=== PATIENT | male | born 1990 | race Caucasian/White ===

== ENCOUNTER 2017-03-28 07:32 | Inpatient (IN) | payer SELFPAY ==
[2017-03-28 09:03] LABS: Hemoglobin 16.2 gm/dl (11.8-15.2); Mean Corpuscular HGB Conc 34 % (32-34); Mean Corpuscular Hemoglobin 29 pg (28-32); Mean Corpuscular Volume 84 fl (84-94); Platelet Count 214 K/mm3 (140-440); Red Cell Distribution Width 13.4 % (13.2-15.2)
[2017-03-28 09:10] LABS: Alanine Aminotransferase 44 units/L (7-56); Albumin 4.3 g/dL (3.9-5); Albumin/Globulin Ratio 1.1 %; Alkaline Phosphatase 63 units/L (35-129); Anion Gap 18 mmol/L; Blood Urea Nitrogen 16 mg/dL (9-20); Calcium 9.2 mg/dL (8.4-10.2); Carbon Dioxide 25 mmol/L (22-30); Chloride 99.5 mmol/L (98-107); Glucose 104 mg/dL (75-100); Lipase 38 units/L (13-60); Potassium 3.6 mmol/L (3.6-5.0); Sodium 139 mmol/L (137-145); Total Protein 8.1 g/dL (6.3-8.2)
[2017-03-28 09:46] LABS: Bilirubin,Urine NEG (Negative); Blood,Urine MOD (Negative); Ketones,Urine NEG (Negative); Leukocyte Esterase,Urine NEG (Negative); Mucus,Urine FEW /HPF; Nitrite,Urine NEG (Negative)
[2017-03-28 10:31] LABS: Basophils % (Manual) 0 % (0.0-1.8); Blastocytes % (Manual) 0 %; Eosinophils % (Manual) 0 % (0.0-4.3)
[2017-03-28 10:32] LABS: Diff Status Complete; RBC Morphology Normal
[2017-03-28] MEDS ORDERED: NACL 0.9% 1000 ML 1,000 ML IV ONE (12:50)
--- NOTE | 2017-03-28 12:52 | Emergency Department Report ---
HPI - General Chief Complaint: Abdominal Pain Time Seen by Provider: 03/28/17 12:47 - HPI HPI: This is a 26-year-old male presents to the emergency department with a complaint of right lower quadrant pain since yesterday afternoon. He did not check his temperature but has felt febrile over last night and this morning. He 's been having some nausea and vomiting. He denies any problems with bowel or bladder. He does not have any past medical history. He did not take anything for his symptoms prior to presentation. No recent travel or sick contacts at home. The patient solely speaks Indian but has a friend bedside who is translating. ED Past Medical Hx - Past Medical History Previous Medical History?: No - Surgical History Past Surgical History?: No - Social History Smoking Status: Never Smoker Substance Use Type: None ED Review of Systems ROS: Stated complaint: ABD PAIN LEFT SIDE Other details as noted in HPI Comment: All other systems reviewed and negative Constitutional: denies: chills, fever Eyes: denies: eye pain, eye discharge, vision change ENT: denies: ear pain, throat pain Respiratory: denies: cough, shortness of breath, wheezing Cardiovascular: denies: chest pain, palpitations Gastrointestinal: abdominal pain, nausea, vomiting Genitourinary: denies: urgency, dysuria Musculoskeletal: denies: back pain, joint swelling, arthralgia Skin: denies: rash, lesions Neurological: denies: headache, weakness, paresthesias Physical Exam - Physical Exam Vital Signs: Vital Signs 03/28/17 03/28/17 08:30 12:44 Temperature 98.7 F Pulse Rate 111 H 91 H Respiratory 16 24 Rate Blood Pressure 136/85 O2 Sat by Pulse 96 98 Oximetry Physical Exam: GENERAL: The patient is well-developed well-nourished. HENT: Normocephalic. Atraumatic. Patient has moist mucous membranes. EYES: Extraocular motions are intact. Pupils equal reactive to light bilaterally. NECK: Supple. Trachea is midline. CHEST/LUNGS: Clear to auscultation. There is no respiratory distress noted. HEART/CARDIOVASCULAR: Regular. There is no tachycardia. There is no gallop rub or murmur. ABDOMEN: Abdomen is soft. There is right lower quadrant tenderness to palpation. There is some mild guarding. Normal bowel sounds. There is no abdominal distention. SKIN: Skin is warm and dry. NEURO: The patient is awake, alert, and oriented. The patient is cooperative. The patient has no focal neurologic deficits. The patient has normal speech. MUSCULOSKELETAL: There is no tenderness or deformity. There is no limitation range of motion. There is no evidence of acute injury. ED Course Vital Signs 03/28/17 03/28/17 08:30 12:44 Temperature 98.7 F Pulse Rate 111 H 91 H Respiratory 16 24 Rate Blood Pressure 136/85 O2 Sat by Pulse 96 98 Oximetry ED Medical Decision Making - Lab Data Result diagrams: 03/28/17 08:36 03/28/17 08:36 - Radiology Data Radiology results: report reviewed CT scan of abdomen and pelvis with IV contrast: History: Right lower quadrant pain, concern for appendicitis. Findings: Normal lung bases. No pleural or pericardial effusion. Liver measures 19 mm in AP diameter. Spleen measures 11 cm. Normal pancreas. Normal adrenals and gallbladder. Normal kidneys and bladder. No free intraperitoneal fluid. No evidence of adenopathy. 1.2 cm dilated appendix with periappendiceal inflammation and dilatation of adjacent small bowel. 6 centimeter calcification in the cecum. Impression: Findings suggesting acute appendicitis. No perforation or abscess. Transcribed By: PTP Dictated By: CHLOE HESTER MD Electronically Authenticated By: CHLOE HESTER MD Signed Date/Time: 03/28/171423 - Medical Decision Making 26-year-old male presents with right lower quadrant abdominal pain, fever, nausea and vomiting. Labs show 22,[address] confirms acute appendicitis. The general surgeon on-call, Dr. Zurita, was artery in the emergency department seeing another patient and was notified of this patient's recent dictation and diagnosis. She has already seen the patient, consented him for an appendectomy and he should be going up to the OR soon and admitted to her service. - Differential Diagnosis appendicitis, colitis, nephrolithiasis Critical Care Time: No Critical care attestation.: If time is entered above; I have spent that time in minutes in the direct care of this critically ill patient, excluding procedure time. ED Disposition Clinical Impression: Acute appendicitis Qualifiers: Acute appendicitis type: with localized peritonitis Qualified Code(s): K35.3 - Acute appendicitis with localized peritonitis Leukocytosis Qualifiers: Leukocytosis type: unspecified Qualified Code(s): D72.829 - Elevated white blood cell count, unspecified Abdominal pain Qualifiers: Abdominal location: right lower quadrant Qualified Code(s): R10.31 - Right lower quadrant pain Disposition: 09 OP ADMIT IP TO THIS HOSP Is pt being admited?: Yes Condition: Stable Referrals: PRIMARY CARE,MD [Primary Care Provider] - 3-5 Days Time of Disposition: 15:45
[2017-03-28] MEDS ORDERED: NACL ONE (13:28)
[2017-03-28] MEDS ORDERED: ZOSYN/NS 4.5GM/100ML 4.5 GM/100 ML VIAL IV ONE (14:22)
--- NOTE | 2017-03-28 14:27 | Cat Scan Report ---
CT scan of abdomen and pelvis with IV contrast: History: Right lower quadrant pain, concern for appendicitis. Findings: Normal lung bases. No pleural or pericardial effusion. Liver measures 19 mm in AP diameter. Spleen measures 11 cm. Normal pancreas. Normal adrenals and gallbladder. Normal kidneys and bladder. No free intraperitoneal fluid. No evidence of adenopathy. 1.2 cm dilated appendix with periappendiceal inflammation and dilatation of adjacent small bowel. 6 centimeter calcification in the cecum. Impression: Findings suggesting acute appendicitis. No perforation or abscess.
--- NOTE | 2017-03-28 14:30 | Admit Criteria Form ---
<OBDULIO NAPOLES - Last Filed: 03/31/17 14:20> Admission Criteria Documentation: ABDOMINAL PAIN Clinical Indications for Admission to Inpatient Care ( [place]/check or initial the applicable condition/criteria): Admission is indicated for ANY ONE of the following (1)(2)(3)(4)(5)(6): [ ]I. Surgery needed that cannot be performed on ambulatory basis [ ]II. Peritoneal signs present (eg, rebound tenderness, rigidity) [ ]III. Evaluation requires patient to not eat or drink for extended period ( eg, more than 24 hours). [X ]IV. Inpatient admission required[B] rather than observation care (see Abdominal Pain: Observation Care guideline as appropriate) because of ANY ONE of the following(7)(8)(9): [ ] a) Hemodynamic instability [X ]b) Severe pain requiring acute inpatient management [ ]c) Identification of etiology or finding that requires inpatient care (eg, aortic dissection, free air,bowel ischemia)(10) [ ]d) Absent bowel sounds with complete ileus (11) [ ]e) Signs of intestinal obstruction[C] [ ]f) Suspected toxic megacolon [ ]g) Severe electrolyte abnormalities requiring inpatient care [ ]h) High fever or infection requiring inpatient admission as indicated by ANY ONE of the following (12)(13): [ ]i) Appropriate outpatient or observation care antimicrobial treatment unavailable, not effective, or not feasible [ ]ii) Documented bacteremia [ ]iii) Temperature greater than 104.9 degrees F (40.5 degrees C) (oral) [ ]iv) Temperature greater than 103.1 degrees F (39.5 degrees C) ( oral) or less than 96.8 degrees F (36 degrees C) (rectal) that does not respond to all emergency treatment measures [ ]i) IV fluid required rather than oral rehydration to replace significant ongoing (eg, for greater than 24 hours) losses (greater than 3 L/m2 per day)(14)(15) [ ]j) Percutaneous or open drainage (eg, abscess, biliary tract) procedures [ ]k) Parenteral nutrition regimen that must be implemented on inpatient basis [ ]l) Other condition, treatment, or monitoring requiring inpatient admission Extended stay beyond goal length of stay may be needed for (1)(3)(4)(10)(16): [ ]a) Surgery (e.g., colectomy, revascularization procedure) [ ]b) Persistent abdominal pain with suspected intra-abdominal process [ ]c) Diagnosed condition requiring continued stay (e.g., pancreatitis, complicated diverticulitis) The original [facility] [employer] content created by [facility] [employer] has been revised. The portions of the content which have been revised are identified through the use of italic text or in bold, and [facility] has neither reviewed nor approved the modified material.All other unmodified content is copyright [facility] [employer]. Please see references footnoted in the original [facility] [employer] edition 2017 Admission Criteria Met: Yes <CORONA CASTELLANOS - Last Filed: 03/31/17 20:05> Admission Criteria Documentation: This admission criteria sheet had no bearing on any medical decision making or clinical decisions from the emergency department and full admission vs observational stay will be decided upon by the hospitalist service and any subsequent specialists seeing this patient.
--- NOTE | 2017-03-28 15:07 | History and Physical Report ---
History of Present Illness Date of examination: 03/28/17 Date of admission: 03/28/17 Chief complaint: abdominal pain, right lower abdomen History of present illness: 26 yo M with no PMHx presents with 3 days of worsening right lower abdominal pain. The pain does not radiate. Over the course of the last 3 days it has become a 10 out of 10 in severity. It is sharp in nature. He has never had pain like this in the past. It is associated with nausea and multiple bouts of nonbloody, nonbilious emesis. He has not been able tolerate a diet. He denies any sick contacts. No subjective fevers or chills, chest pain, shortness of breath. Past History Past Medical History: No medical history Past Surgical History: Other (craniotomy for trauma) Social history: no significant social history. denies: smoking, alcohol abuse, IV drug use Family history: no significant family history Medications and Allergies Allergies Allergy/AdvReac Type Severity Reaction Status Date / Time No Known Allergies Allergy Verified 03/28/17 13:28 Active Meds: Active Medications Sodium Chloride (Nacl 0.9% 1000 Ml) 1,000 mls @ 125 mls/hr IV ONCE ONE Stop: 03/28/17 20:49 Last Admin: 03/28/17 13:32 Dose: 125 mls/hr Review of Systems All systems: negative (see H and P) Exam Vital Signs Temp Pulse Resp BP Pulse Ox 98.7 F 111 H 16 136/85 96 03/28/17 08:30 03/28/17 08:30 03/28/17 08:30 03/28/17 08:30 03/28/17 08:30 Narrative exam: General: Awake alert and oriented 3. mild painful distress CV: S1 and S2 present Resp: NO audible wheezes Abd: soft, ND, + RLQ and suprapubic TTP. No rebound or rigidity. Mild voluntary guarding. Ext: No c/c/e Results - Labs 03/28/17 08:36 03/28/17 08:36 Abnormal lab results 03/28/17 03/28/17 Range/Units 08:36 08:36 WBC 22.0 H (4.5-11.0) K/mm3 RBC 5.60 H (3.65-5.03) M/mm3 Hgb 16.2 H (11.8-15.2) gm/dl Hct 47.0 H (35.5-45.6) % Seg Neuts % (Manual) 91.0 H (40.0-70.0) % Lymphocytes % (Manual) 2.0 L (13.4-35.0) % Seg Neutrophils # Man 20.0 H (1.8-7.7) K/mm3 Lymphocytes # (Manual) 0.4 L (1.2-5.4) K/mm3 Glucose 104 H (75-100) mg/dL Total Bilirubin 2.30 H (0.1-1.2) mg/dL Diabetes panel 03/28/17 Range/Units 08:36 Sodium 139 (137-145) mmol/L Potassium 3.6 (3.6-5.0) mmol/L Chloride 99.5 (98-107) mmol/L Carbon Dioxide 25 (22-30) mmol/L BUN 16 (9-20) mg/dL Creatinine 0.8 (0.8-1.5) mg/dL Glucose 104 H (75-100) mg/dL Calcium 9.2 (8.4-10.2) mg/dL AST 21 (5-40) units/L ALT 44 (7-56) units/L Alkaline Phosphatase 63 (35-129) units/L Total Protein 8.1 (6.3-8.2) g/dL Albumin 4.3 (3.9-5) g/dL Calcium panel 03/28/17 Range/Units 08:36 Calcium 9.2 (8.4-10.2) mg/dL Albumin 4.3 (3.9-5) g/dL Pituitary panel 03/28/17 Range/Units 08:36 Sodium 139 (137-145) mmol/L Potassium 3.6 (3.6-5.0) mmol/L Chloride 99.5 (98-107) mmol/L Carbon Dioxide 25 (22-30) mmol/L BUN 16 (9-20) mg/dL Creatinine 0.8 (0.8-1.5) mg/dL Glucose 104 H (75-100) mg/dL Calcium 9.2 (8.4-10.2) mg/dL Adrenal panel 03/28/17 Range/Units 08:36 Sodium 139 (137-145) mmol/L Potassium 3.6 (3.6-5.0) mmol/L Chloride 99.5 (98-107) mmol/L Carbon Dioxide 25 (22-30) mmol/L BUN 16 (9-20) mg/dL Creatinine 0.8 (0.8-1.5) mg/dL Glucose 104 H (75-100) mg/dL Calcium 9.2 (8.4-10.2) mg/dL Total Bilirubin 2.30 H (0.1-1.2) mg/dL AST 21 (5-40) units/L ALT 44 (7-56) units/L Alkaline Phosphatase 63 (35-129) units/L Total Protein 8.1 (6.3-8.2) g/dL Albumin 4.3 (3.9-5) g/dL - Imaging CT scan - abdomen: report reviewed, image reviewed (acute appendicitis) CT scan - pelvis: report reviewed, image reviewed Assessment and Plan 26-year-old male with sepsis, acute appendicitis nonperforated Plan: 1. patient will be admitted to the general surgery service, [facility] floor 2. keep NPO 3. IVF 4. IV zosyn to be administered in ER 5. pain and nausea control PRN 6. OR today for appendectomy, all risks and benefits were discussed with the patient and his brother at the bedside, consent signed and on chart
[2017-03-28] MEDS ORDERED: ZOFRAN IV PRN ×2 (15:35→18:31)
[2017-03-28] MEDS ORDERED: DILAUDID IV PRN (15:35)
--- NOTE | 2017-03-28 15:36 | Anesthesia Day of Surgery ---
Anesthesia Day of Surgery - Day of Surgery Patient Examined: Yes Patient H&P Reviewed: Yes Patient is NPO: Yes
--- NOTE | 2017-03-28 15:36 | Anesthesia Consultation ---
Anesthesia Consult and Med Hx Date of service: 03/28/17 - Airway Anesthetic Teeth Evaluation: Good ROM Head & Neck: Adequate Mental/Hyoid Distance: Adequate Mallampati Class: Class II Intubation Access Assessment: Probably Good - Pulmonary Exam CTA: Yes - Cardiac Exam Cardiac Exam: RRR - Pre-Operative Health Status ASA Pre-Surgery Classification: ASA2 Proposed Anesthetic Plan: General - Pulmonary Hx Smoking: No Hx Asthma: No - Cardiovascular System Hx Hypertension: No - Central Nervous System Hx Seizures: No CVA: No - Endocrine Hx Renal Disease: No Hx Liver Disease: No Hx Hyperthyroidism: No - Hematic Hx Anemia: No - Other Systems Hx Obesity: Yes (BMI 35)
[2017-03-28] MEDS ORDERED: DILAUDID ONE (15:46)
[2017-03-28] MEDS ORDERED: DIPRIVAN 10 MG/ML IV ONE (15:46)
[2017-03-28] MEDS ORDERED: ZEMURON IV ONE (15:47)
[2017-03-28] MEDS ORDERED: XYLOCAINE MPF 2% ONE (15:47)
[2017-03-28] MEDS ORDERED: QUELICIN ONE (15:47)
[2017-03-28] MEDS ORDERED: PEPCID IV NR (16:00)
[2017-03-28] MEDS ORDERED: NACL 0.9% 1000 ML 1,000 ML IV SCH (16:00)
[2017-03-28] MEDS ORDERED: VERSED IV NR (16:00)
[2017-03-28] MEDS ORDERED: XYLOCAINE 1% 20 mL INFILTRATI ONE (16:16)
[2017-03-28] MEDS ORDERED: MARCAINE 0.5% INFILTRATI ONE (16:16)
[2017-03-28] MEDS ORDERED: XYLOCAINE 1% 20 mL ONE (16:25)
[2017-03-28] MEDS ORDERED: MARCAINE 0.5% 30 ML INFILTRATI ONE (16:25)
[2017-03-28] MEDS ORDERED: ROBINUL ONE (17:00)
[2017-03-28] MEDS ORDERED: NEOSTIGMINE ONE (17:01)
[2017-03-28] MEDS ORDERED: TORADOL ONE (17:04)
[2017-03-28] MEDS ORDERED: ZOFRAN ONE (17:04)
--- NOTE | 2017-03-28 17:26 | Post Operative Note ---
Pre-op diagnosis: acute appendicitis Post-op diagnosis: other (acute gangrenous appendicitis) Findings: gangrenous, inflamed appendix Procedure: Laparoscopic appendectomy Anesthesia: NANCY Surgeon: DOREEN ENGLAND Estimated blood loss: minimal Pathology: list (appendix) Specimen disposition: to lab Condition: stable Disposition: PACU
[2017-03-28] MEDS ORDERED: MILK OF MAGNESIA PO PRN (18:31)
[2017-03-28] MEDS ORDERED: MORPHINE IV PRN (18:31)
[2017-03-28] MEDS ORDERED: NARCAN 0.4 MG/1 ML IV PRN (18:31)
[2017-03-28] MEDS ORDERED: DULCOLAX PR PRN (18:31)
[2017-03-28] MEDS: NACL 0.9% 1000 ML 1,000 ML IV SCH (18:48)
--- NOTE | 2017-03-28 20:29 | Post Anesthesia Evaluation ---
- Post Anesthesia Evaluation Patient Participated: Yes Airway Patent: Yes Stable Respiratory Function: Yes Nausea/Vomiting: No Temp > 96.8F: Yes Pain Manageable: Yes Adequeate Hydration: Yes Anesthesia Complications: No Block Receding Appropriately: Not Applicable Patient on Ventilator: No
--- NOTE | 2017-03-28 21:30 | Operative Report ---
Operative Report Operative Report: Indication and HPI: 26 y/o M presented to ED with RLQ conn x3 days. He had a leukocytosis on labs and acute appendicitis on CT scan. He was therefore consented for an appendectomy. The patient received zosyn in the ER. Procedure in detail: Patient was identified in the preop area and taken back to the OR and placed on the OR table in supine position. After anesthesia was induced a moreno catheter was steriley placed by the circulating nurse. A time out was performed. The abdomen was insufflated via veress needle through a 5mm supraumbilical incision. Once insufflated to 15mmHg the veress needle was withdrawn and a 5mm trocar was placed using visiport. The abdomen was inspected and no underlying injury to the abdominal structures was identified. A 5mm trocar suprapubic and 12 mm LLQ trocars were placed under direct visualization. Local anesthetic was infiltrated into skin at port sites. The appendix was visualized and noted to be gangrenous, inflammed and have adhesions to the small bowel. These adhesions were taken down bluntly. The base of the appendix was identified. The mesentery of the appendix was ligated using the harmonic scalpel. The base of the appendix was transected using an ethicon flex stapler 35mm white load. The appendix was placed into an endocatch bag and removed via the 12 mm port. This was passed off the table as specimen. The staple line and mesentery were then inspected and there was no bleeding and the staple line was in tact. The area was irrigated with a small amount of saline and hemstasis ensured. The pelvis was then inspected and there was some reactive clear fluid which was suctioned out. The ports were all removed under direct visualization and the abdomen desufflated. THe 12mm port fascia was closed with a single interrupted 0 vicryl stitch. All skin incisions were closed using 4-0 monocryl subcuticular stitches and skin glue. At the end of the case, all sponge, instrument, sharp counts were correct x2. The patient was awoken from anesthesia, moreno catheter removed, and taken to PACU in stable condition.
[2017-03-28] MEDS: TYLENOL PO PRN (22:08)
[2017-03-28] MEDS: HEPARIN SUB-Q SCH (22:25)
[2017-03-29] MEDS: PERCOCET 5/325 PO PRN ×2 (01:46→22:20)
[2017-03-29 03:39] LABS: Basophils % (Auto) 0.4 % (0.0-1.8); Eosinophils % (Auto) 0.2 % (0.0-4.3); Hematocrit 40.6 % (35.5-45.6); Hemoglobin 13.9 gm/dl (11.8-15.2); Mean Corpuscular HGB Conc 34 % (32-34); Mean Corpuscular Hemoglobin 29 pg (28-32); Mean Corpuscular Volume 86 fl (84-94); Platelet Count 171 K/mm3 (140-440); Red Blood Count 4.74 M/mm3 (3.65-5.03); Red Cell Distribution Width 13.9 % (13.2-15.2); White Blood Count 9.5 K/mm3 (4.5-11.0)
[2017-03-29] MEDS: HEPARIN SUB-Q SCH ×3 (07:11→22:19)
[2017-03-29] MEDS: NACL 0.9% 1000 ML 1,000 ML IV SCH ×4 (07:13→22:24)
[2017-03-29] MEDS: TYLENOL PO PRN ×2 (08:41→13:03)
--- NOTE | 2017-03-29 08:59 | Progress Note ---
Assessment and Plan 26 y/o M with acute appendicitis, s/p Laparoscopic appendectomy POD1 1. adv to reg diet 2. decrease IVF 3. OOB/ambulate 4. IS - encouraged use 5. fevers - will monitor, likely secondary to post surgical atelectatis. tylenol prn 6. DVT ppx 7. pain control - percocet 8. dc planning possibly today Subjective Date of service: 03/29/17 Patient Reports: Positive: no new complaints, feels better, pain is less, tolerating liquids well, voiding w/o difficulty, fever (Tmax 101 overnight). Negative: vomiting, shortness of breath Objective Vital Signs - 12hr 03/28/17 03/28/17 03/29/17 22:19 23:57 05:03 Temperature 101.5 F H 100.4 F H 99.3 F Pulse Rate 100 H 88 Respiratory 16 16 Rate Blood Pressure 103/48 114/58 O2 Sat by Pulse 94 95 Oximetry 03/29/17 03/29/17 05:04 07:48 Temperature 100.0 F H Pulse Rate 84 Respiratory 18 Rate Blood Pressure 126/70 O2 Sat by Pulse 94 Oximetry - General physical appearance Narrative Exam: Gen: AAOx3. NAD CV: S1, S2+ Resp: NO audible wheezes, 2500 on IS Abd: soft, ND, mild TTP near LLQ incision, all incisions, c/d/i Ext: No c/c/e - Labs 03/29/17 03:14 03/28/17 08:36
--- NOTE | 2017-03-29 09:04 | Discharge Summary ---
Providers - Providers Date of Admission: 03/28/17 17:00 Date of discharge: 03/30/17 Attending physician: DOREEN ENGLAND DO Primary care physician: [employer] Hospitalization Reason for admission: acute appendicitis Condition: Stable Pertinent studies: Ct scan abdomen and pelvis Procedures: Laparoscopic appendectomy Hospital course: 26 yo M presented with RLQ abdominal pain for 3 days. He was found to have acute appendicitis on CT scan and taken to the OR for a laparoscopic appendectomy. The patient did well posteroperatively and tolerated a diet. He was voiding and ambulating without difficulty. He had fevers on POD 1 which improved with tylenol and incentive spirometry use. He was discharged on POD2 once afebrile for 24 hours. He was discharged to home in stable condition with his family. Disposition: DC-01 TO HOME OR SELFCARE Time spent for discharge: 30 minutes - Discharge Diagnoses (1) Acute appendicitis Status: Acute Qualifiers: Acute appendicitis type: with localized peritonitis Qualified Code(s): K35.3 - Acute appendicitis with localized peritonitis (2) Sepsis Status: Acute Qualifiers: Sepsis type: S Core Measure Documentation - Palliative Care Palliative Care/ Comfort Measures: Not Applicable - Core Measures Any of the following diagnoses?: none Exam - Constitutional Vitals: Temp Pulse Resp BP Pulse Ox 100.0 F H 84 18 126/70 94 03/29/17 07:48 03/29/17 05:04 03/29/17 07:48 03/29/17 07:48 03/29/17 05:04 General appearance: Present: no acute distress, well-nourished - Respiratory Respiratory effort: normal - Cardiovascular Rhythm: regular Heart Sounds: Present: S1 & S2 - Extremities Extremities: No edema - Abdominal General gastrointestinal: Present: soft, tender (near LLQ incision), non- distended, other (incisions c/d/i) - Integumentary Integumentary: Present: warm, dry Plan Activity: other (no heavy lifting more than 15 lbs for 4 weeks) Diet: regular Wound: open to air, other (may shower, do not scrub or submerge incisions in water. ) Follow up with: DASH HUFF MD [Primary Care Provider] - 3-5 Days DOREEN ENGLAND DO [Staff Physician] - 14 Days Prescriptions: oxyCODONE /ACETAMINOPHEN [Percocet 5/325 mg] 1 tab PO Q6H PRN #20 tablet PRN Reason: Pain, Moderate (4-6)
[2017-03-29] MEDS: ZOSYN/NS 3.375GM/50ML 3.375 GM/50 ML BAG IV SCH ×3 (09:41→17:20)
[2017-03-30] MEDS: ZOSYN/NS 3.375GM/50ML 3.375 GM/50 ML BAG IV SCH ×2 (01:11→06:05)
[2017-03-30] MEDS: HEPARIN SUB-Q SCH (06:04)
[2017-03-30 07:30] VITALS: BP 137/75
== END 2017-03-30 10:55 | disposition home or self-care (01) | DRG 854 ==
LOC: ED 07:32 → OR 15:46 → 3B-SURG 17:00
PROVIDERS: ADMIT Surgery; ATTEND Surgery
PROC: 0DTJ4ZZ Resection of Appendix, Percutaneous Endoscopic Approach (ICD-10-PCS; principal; 2017-03-28)
DX: A41.9 Sepsis, unspecified organism (principal); K35.80 Unspecified acute appendicitis
CPT/HCPCS: 36415; 74177; 80053; 81001; 83690; 85007; 85025; 88304; 96374; 96375; J0330; J1170; J1644; J1885; J2250; J2270; J2405; J2543; J2704; J2710; J7030; Q9967